=== PATIENT | female | born 1960 | race Caucasian/White ===

== ENCOUNTER 2017-01-13 15:55 | Emergency (ER) | payer OTHER ==
[~2017-01-13] VITALS: Ht 167.6 cm; Wt 84.0 kg
[2017-01-13 15:57] VITALS: BP 116/68; PULSE 82; RESP 15; TEMP 98.3; O2SAT 91
[2017-01-13] MEDS ORDERED: SODIUM CHLORIDE 0.9% FLUSH 5 ML FLUSH IVF PRN (16:15)
[2017-01-13] MEDS ORDERED: predniSONE 50 MG TAB PO ONE (16:15)
[2017-01-13] MEDS ORDERED: ZYRT10CA PO (16:18)
[2017-01-13] MEDS ORDERED: BENZ1CAP34 PO (16:18)
[2017-01-13] MEDS ORDERED: CIPR500T2 PO (16:18)
[2017-01-13] MEDS ORDERED: LEVO.2 PO (16:18)
--- NOTE | 2017-01-13 16:20 | PD ---
HPI Chief Complaint: Respiratory Symptoms Time Seen by Provider: 16:09 Travel History International Travel<30 days: No Contact w/Intl Traveler<30days: No Traveled to known affect area: No History of Present Illness HPI 56-year-old female here for evaluation of shortness of breath and cough. The patient has had these symptoms for last 2 weeks and has been treated with doxycycline, Cipro, albuterol inhaler, and steroids. Symptoms have not been improving. Shortness of breath is at rest, worse with exertion. She smokes about 3/4 a pack of cigarettes per day and has been smoking for the last 30 years. She is having some back pains when she coughs. Cough is nonproductive. No hemoptysis. No history of DVT or PE. No known cardiac disease. No chest pain. PFSH Past Medical History Medical History: Denies Significant Hx Influenza Vaccination: No ?: Not Tubal Ligation: Yes Social History Alcohol Use: No Tobacco Use: Yes (11/23 ppd ) Substance Use: No Allergies-Medications (Allergen,Severity, Reaction): Coded Allergies: Biaxin (Verified Allergy, Severe, Itching, 01/13/17) Keflex (Verified Allergy, Severe, Hives, 01/13/17) Methylprednisolone (Verified Allergy, Severe, Itching, 01/13/17) Penicillin (Verified Allergy, Severe, Hives, 01/13/17) Reported Meds & Prescriptions Reported Meds & Active Scripts Active Prednisone 50 Mg Tab 50 Mg PO DAILY 5 Days Reported Benzonatate 200 Mg Cap 200 Mg PO Q8HR PRN Ciprofloxacin (Ciprofloxacin HCl) 500 Mg Tab 500 Mg PO BID Zyrtec Allergy (Cetirizine HCl) 10 Mg Cap 10 Mg PO DAILY Synthroid (Levothyroxine Sodium) 200 Mcg Tab 200 Mcg PO DAILY Review of Systems Except as stated in HPI: all other systems reviewed are Neg Physical Exam Narrative GENERAL: Well-developed, well-nourished, pursed lip breathing, mild respiratory distress, speaking full sentences. SKIN: Warm and dry. HEAD: Atraumatic. Normocephalic. EYES: Pupils equal and round. No scleral icterus. No injection or drainage. ENT: No nasal bleeding or discharge. Mucous membranes pink and moist. NECK: Trachea midline. No JVD. CARDIOVASCULAR: Regular rate and rhythm. RESPIRATORY: Pursed lip breathing, mild respiratory distress, speaking full sentences. Inspiratory and expiratory wheezes bilaterally. No rales or rhonchi. GASTROINTESTINAL: Abdomen soft, non-tender, nondistended. MUSCULOSKELETAL: No obvious deformities. No clubbing. No cyanosis. No edema. Bilateral calves are supple, nontender. NEUROLOGICAL: Awake and alert. No obvious cranial nerve deficits. Motor grossly within normal limits. Normal speech. PSYCHIATRIC: Appropriate mood and affect; insight and judgment normal. Data Data Last Documented VS Vital Signs Date Time Temp Pulse Resp B/P Pulse Ox O2 Delivery O2 Flow Rate FiO2 01/13/17 16:40 97 Nasal Cannula 2 01/13/17 15:57 98.3 82 15 116/68 Orders Complete Blood Count With Diff (01/13/17 16:15) Comprehensive Metabolic Panel (01/13/17 16:15) B-Type Natriuretic Peptide (01/13/17 16:15) D-Dimer (01/13/17 16:15) Act Partial Throm Time (Ptt) (01/13/17 16:15) Prothrombin Time / Inr (Pt) (01/13/17 16:15) Ckmb (Isoenzyme) Profile (01/13/17 16:15) Troponin I (01/13/17 16:15) Influenzae A/B Antigen (01/13/17 16:15) Iv Access Insert/Monitor (01/13/17 16:15) Electrocardiogram (01/13/17 16:15) Ecg Monitoring (01/13/17 16:15) Oximetry (01/13/17 16:15) Oxygen Administration (01/13/17 16:15) Chest, Single Ap (01/13/17 16:15) Sodium Chloride 0.9% Flush (Ns Flush) (01/13/17 16:15) Albuterol-Ipratropium Neb (Duoneb Neb) (01/13/17 16:15) Prednisone (Deltasone) (01/13/17 16:15) CKMB (01/13/17 16:21) CKMB% (01/13/17 16:21) Labs Laboratory Tests Test 01/13/17 16:21 White Blood Count 14.8 TH/MM3 Red Blood Count 5.21 MIL/MM3 Hemoglobin 15.6 GM/DL Hematocrit 46.4 % Mean Corpuscular Volume 89.0 FL Mean Corpuscular Hemoglobin 29.9 PG Mean Corpuscular Hemoglobin 33.7 % Concent Red Cell Distribution Width 13.5 % Platelet Count 346 TH/MM3 Mean Platelet Volume 8.9 FL Neutrophils (%) (Auto) 48.9 % Lymphocytes (%) (Auto) 31.5 % Monocytes (%) (Auto) 8.4 % Eosinophils (%) (Auto) 10.4 % Basophils (%) (Auto) 0.8 % Neutrophils # (Auto) 7.2 TH/MM3 Lymphocytes # (Auto) 4.7 TH/MM3 Monocytes # (Auto) 1.2 TH/MM3 Eosinophils # (Auto) 1.5 TH/MM3 Basophils # (Auto) 0.1 TH/MM3 CBC Comment DIFF FINAL Differential Comment Prothrombin Time 10.7 SEC Prothromb Time International 1.0 RATIO Ratio Activated Partial 27.5 SEC Thromboplast Time D-Dimer Quantitative (PE/DVT) 0.31 MG/L FEU Sodium Level 140 MEQ/L Potassium Level 4.2 MEQ/L Chloride Level 107 MEQ/L Carbon Dioxide Level 24.3 MEQ/L Anion Gap 9 MEQ/L Blood Urea Nitrogen 14 MG/DL Creatinine 0.90 MG/DL Estimat Glomerular Filtration 65 ML/MIN Rate Random Glucose 104 MG/DL Calcium Level 8.7 MG/DL Total Bilirubin 0.3 MG/DL Aspartate Amino Transf 26 U/L (AST/SGOT) Alanine Aminotransferase 34 U/L (ALT/SGPT) Alkaline Phosphatase 113 U/L Total Creatine Kinase 314 U/L Creatine Kinase MB 7.8 NG/ML Creatine Kinase MB % 2.5 % Troponin I LESS THAN 0.02 NG/ML B-Type Natriuretic Peptide 9 PG/ML Total Protein 7.0 GM/DL Albumin 3.7 GM/DL [facility] Medical Decision Making Medical Screen Exam Complete: Yes Emergency Medical Condition: Yes Interpretation(s) EKG: Sinus, rate 90, left axis deviation, early AFB, normal intervals, no acute ischemic abnormality. Differential Diagnosis COPD/reactive airway disease, pneumonia, bronchitis, influenza, PE, ACS Narrative Course Initial vital signs show heart rate 82, blood pressure 116/68, pulse ox 91% on room air, oral temp of 98.3F. CBC shows WBC 14.8, hemoglobin 15.6, hematocrit 46.4, platelets 346. CMP is essentially unremarkable. BNP is 9. Cardiac enzymes are negative. D-dimer 0.31. Chest x-ray: The lungs are clear. The patient was given 3 DuoNeb treatments and oral prednisone and is feeling a lot better. Her respiratory status has significantly improved. She is no longer wheezing. She was made aware of all findings. She will be observed in the emergency department for a little while longer, and if her respiratory status is improved, she'll be discharged home with a prescription for prednisone. She has an albuterol inhaler at home. She was also encouraged to continue the Cipro that was prescribed by her primary care physician. PMD follow-up this week. She was informed on when to return to the emergency department. She verbalizes understanding and agreement with plan. Diagnosis Primary Impression: Bronchitis Referrals: Primary Care Physician 3 days Additional Instructions: Follow-up with your primary care physician this week. Return to the emergency department for worsening symptoms or any other concerns. Scripts Prednisone 50 Mg Tab50 Mg PO DAILY 5 Days Ref 0 Prov:Arturo Tobin MD 01/13/17 Disposition: 01 DISCHARGE HOME Condition: Stable Arturo Tobin MD Jan 13, 2017 16:20
[2017-01-13] MEDS: RESP: ALBUTEROL 2.5 MG/IPRATROPIUM 0.5 MG NEB (SCH) INH (16:25)
[2017-01-13 16:28] VITALS: O2SAT 96
[2017-01-13 16:40] VITALS: O2SAT 93
[2017-01-13 16:40] LABS: AUTOMATED NEUTROPHIL # 7.2 TH/MM3 (1.8-7.7); BASOPHIL # 0.1 TH/MM3 (0-0.2); BASOPHIL % 0.8 % (0.0-2.0); EOSINOPHIL # 1.5 TH/MM3 (0-0.4); EOSINOPHIL % 10.4 % (0.0-4.0); HEMATOCRIT 46.4 % (35.0-46.0); HEMO FLAGS DIFF FINAL; LYMPH % 31.5 % (9.0-44.0); LYMPHOCYTE # 4.7 TH/MM3 (1.0-4.8); MEAN CORPUSCULAR HEMOGLOBIN 29.9 PG (27.0-34.0); MEAN CORPUSCULAR HGB CONC 33.7 % (32.0-36.0); MONO % 8.4 % (0.0-8.0); NEUT % 48.9 % (16.0-70.0); PLATELET COUNT 346 TH/MM3 (150-450); RED BLOOD COUNT 5.21 MIL/MM3 (4.00-5.30); RED CELL DISTRIBUTION WIDTH 13.5 % (11.6-17.2); WHITE BLOOD COUNT 14.8 TH/MM3 (4.0-11.0)
--- NOTE | 2017-01-13 16:46 | RADRPT ---
EXAM DATE/TIME: 01/13/2017 16:23 [place] COMPARISON: No previous studies available for comparison. INDICATIONS : Short of breath. MEDICAL HISTORY : None. SURGICAL HISTORY : None. ENCOUNTER: Initial ACUITY: 2 weeks PAIN SCORE: 1/10 LOCATION: Bilateral chest FINDINGS: A single view of the chest demonstrates the lungs to be symmetrically aerated without evidence of mas s, infiltrate or effusion. The cardiomediastinal contours are unremarkable. Osseous structures are intact. CONCLUSION: The lungs are clear. Shahid Hyman MD on January 13, 2017 at 16:44 Board Certified Radiologist. This report was verified electronically.
[2017-01-13 16:54] LABS: APTT (PATIENT) 27.5 SEC (24.3-30.1); PROTHROMBIN TIME - PATIENT 10.7 SEC (9.8-11.6)
[2017-01-13 17:09] LABS: ALKALINE PHOSPHATASE 113 U/L (45-117); CREATINE KINASE 314 U/L (26-192); TOTAL BILIRUBIN ADULT 0.3 MG/DL (0.2-1.0)
[2017-01-13 17:14] LABS: ALT (GPT) 34 U/L (10-53); ANION GAP 9 MEQ/L (5-15); AST (GOT) 26 U/L (15-37); BICARBONATE 24.3 MEQ/L (21.0-32.0); BLOOD UREA NITROGEN 14 MG/DL (7-18); CHLORIDE 107 MEQ/L (98-107); GLOMERULAR FILTRATION RATE 65 ML/MIN (>89); POTASSIUM 4.2 MEQ/L (3.5-5.1); SODIUM (NA) 140 MEQ/L (136-145)
[2017-01-13 17:21] LABS: CKMB 7.8 NG/ML (0.5-3.6)
[2017-01-13] MEDS ORDERED: PRED50 PO (17:30)
--- NOTE | 2017-01-13 18:02 | PD ---
Physical Exam Date Seen by Provider: Jan 13, 2017 Narrative Patient was here with wheezing. Please see Dr. Tobin's note for details. Data Data Last Documented VS Vital Signs Date Time Temp Pulse Resp B/P Pulse Ox O2 Delivery O2 Flow Rate FiO2 01/13/17 16:40 97 Nasal Cannula 2 01/13/17 15:57 98.3 82 15 116/68 Orders Complete Blood Count With Diff (01/13/17 16:15) Comprehensive Metabolic Panel (01/13/17 16:15) B-Type Natriuretic Peptide (01/13/17 16:15) D-Dimer (01/13/17 16:15) Act Partial Throm Time (Ptt) (01/13/17 16:15) Prothrombin Time / Inr (Pt) (01/13/17 16:15) Ckmb (Isoenzyme) Profile (01/13/17 16:15) Troponin I (01/13/17 16:15) Influenzae A/B Antigen (01/13/17 16:15) Iv Access Insert/Monitor (01/13/17 16:15) Electrocardiogram (01/13/17 16:15) Ecg Monitoring (01/13/17 16:15) Oximetry (01/13/17 16:15) Oxygen Administration (01/13/17 16:15) Chest, Single Ap (01/13/17 16:15) Sodium Chloride 0.9% Flush (Ns Flush) (01/13/17 16:15) Albuterol-Ipratropium Neb (Duoneb Neb) (01/13/17 16:15) Prednisone (Deltasone) (01/13/17 16:15) CKMB (01/13/17 16:21) CKMB% (01/13/17 16:21) Labs Laboratory Tests Test 01/13/17 16:21 White Blood Count 14.8 TH/MM3 Red Blood Count 5.21 MIL/MM3 Hemoglobin 15.6 GM/DL Hematocrit 46.4 % Mean Corpuscular Volume 89.0 FL Mean Corpuscular Hemoglobin 29.9 PG Mean Corpuscular Hemoglobin 33.7 % Concent Red Cell Distribution Width 13.5 % Platelet Count 346 TH/MM3 Mean Platelet Volume 8.9 FL Neutrophils (%) (Auto) 48.9 % Lymphocytes (%) (Auto) 31.5 % Monocytes (%) (Auto) 8.4 % Eosinophils (%) (Auto) 10.4 % Basophils (%) (Auto) 0.8 % Neutrophils # (Auto) 7.2 TH/MM3 Lymphocytes # (Auto) 4.7 TH/MM3 Monocytes # (Auto) 1.2 TH/MM3 Eosinophils # (Auto) 1.5 TH/MM3 Basophils # (Auto) 0.1 TH/MM3 CBC Comment DIFF FINAL Differential Comment Prothrombin Time 10.7 SEC Prothromb Time International 1.0 RATIO Ratio Activated Partial 27.5 SEC Thromboplast Time D-Dimer Quantitative (PE/DVT) 0.31 MG/L FEU Sodium Level 140 MEQ/L Potassium Level 4.2 MEQ/L Chloride Level 107 MEQ/L Carbon Dioxide Level 24.3 MEQ/L Anion Gap 9 MEQ/L Blood Urea Nitrogen 14 MG/DL Creatinine 0.90 MG/DL Estimat Glomerular Filtration 65 ML/MIN Rate Random Glucose 104 MG/DL Calcium Level 8.7 MG/DL Total Bilirubin 0.3 MG/DL Aspartate Amino Transf 26 U/L (AST/SGOT) Alanine Aminotransferase 34 U/L (ALT/SGPT) Alkaline Phosphatase 113 U/L Total Creatine Kinase 314 U/L Creatine Kinase MB 7.8 NG/ML Creatine Kinase MB % 2.5 % Troponin I LESS THAN 0.02 NG/ML B-Type Natriuretic Peptide 9 PG/ML Total Protein 7.0 GM/DL Albumin 3.7 GM/DL [facility] Supervised Visit with ÁNGEL: No Narrative Course The patient was checked out to me at 5 PM for recheck of her lungs. She had been treated for bronchospasm. Patient reports she feels much better at this time. On exam, she has good air movement with only occasional scattered coarse expiratory wheezes. She is now stable for discharge. Diagnosis Primary Impression: Bronchitis Referrals: Primary Care Physician 3 days Additional Instruction: Follow-up with your primary care physician this week. Return to the emergency department for worsening symptoms or any other concerns. Scripts Prednisone 50 Mg Tab50 Mg PO DAILY 5 Days Ref 0 Prov:Arturo Tobin MD 01/13/17 Disposition: 01 DISCHARGE HOME Condition: Stable Deanna Foote MD Jan 13, 2017 18:02
--- NOTE | 2017-01-14 17:18 | EKG ---
Date Performed: 01/13/2017 Time Performed: 16:30:56 PTAGE: 56 years EKG: Sinus rhythm LEFT ANTERIOR FASCICULAR BLOCK ABNORMAL ECG NO PREVIOUS TRACING DOCTOR: Corazon Rodriguez Interpretating Date/Time 01/14/2017 17:15:09
== END 2017-01-13 19:26 | disposition home or self-care (01) ==
LOC: NEPA 15:55
DX: J40 Bronchitis, not specified as acute or chronic (principal); R94.31 Abnormal electrocardiogram [ECG] [EKG]; F17.200 Nicotine dependence, unspecified, uncomplicated
CPT/HCPCS: 71010; 80053; 82550; 82552; 83880; 84484; 85025; 85379; 85610; 85730; 87804; 93005; 94640; 94664; 99285; J7512